=== PATIENT | male | born 1970 | race Caucasian/White ===

== ENCOUNTER 2018-08-31 03:29 | Emergency (ER) | payer MEDICAID ==
[~2018-08-31] VITALS: Ht 167.6 cm; Wt 68.2 kg
[~2018-08-31 03:29] MED LIST: NO HOME MEDS
[2018-08-31] MEDS ORDERED: aspirin 81mg tab.chew PO ONE (03:55)
[2018-08-31 04:34] LABS: BASOPHILS # (AUTO) 0.1 X10'3 (0-0.2); BASOPHILS % (AUTO) 0.8 % (0-1); EOSINOPHILS # (AUTO) 0.2 X10'3 (0-0.9); EOSINOPHILS % (AUTO) 2.3 % (0-6); HEMOGLOBIN 14.1 g/dl (14.0-17.9); LYMPHOCYTES # (AUTO) 1.8 X10'3 (1.1-4.8); LYMPHOCYTES % (AUTO) 27.2 % (21-51); MEAN CORPUSCULAR HEMOGLOBIN 30.1 PG (27.0-31.0); MEAN CORPUSCULAR HGB CONC 33.5 % (33.0-36.5); MEAN CORPUSCULAR VOLUME 89.8 FL (78-98); MEAN PLATELET VOLUME 6.8 FL (7.4-10.4); MONOCYTES # (AUTO) 0.5 X10'3 (0-0.9); MONOCYTES % (AUTO) 6.8 % (2-12); NEUTROPHILS # (AUTO) 4.3 X10'3 (1.8-7.7); NEUTROPHILS % (AUTO) 62.9 % (42-75); PLATELET COUNT 353 X10'3 (140-440); RED BLOOD COUNT 4.67 X10'6 (4.70-6.10); RED CELL DISTRIBUTION WIDTH 12.7 % (11.5-14.5); WHITE BLOOD COUNT 6.8 X10'3 (4.5-11.0)
[2018-08-31 04:49] LABS: ALANINE AMINOTRANSFERASE 34 U/L (12-78); ALBUMIN 3.7 G/DL (3.4-5.0); ALBUMIN/GLOBULIN RATIO 1.1 (1.1-1.5); ALKALINE PHOSPHATASE 90 IU/L (46-116); ANION GAP 11 (8-16); ASPARTATE AMINO TRANSFERASE 22 U/L (10-37); BILIRUBIN,TOTAL 0.4 MG/DL (0.1-1.0); BLOOD UREA NITROGEN 18 MG/DL (7-18); CALCIUM 8.4 MG/DL (8.5-10.1); CHLORIDE 102 MMOL/L (99-107); CREATININE 1.06 MG/DL (0.60-1.10); GLUCOSE 112 MG/DL (70-104); POTASSIUM 3.6 MMOL/L (3.5-5.1); SODIUM 140 MMOL/L (135-145); TOTAL CARBON DIOXIDE 27.5 MMOL/L (24-32); TOTAL PROTEIN 7.1 G/DL (6.4-8.2); eGFR 74 ML/MIN
[2018-08-31 05:06] VITALS: BP 153/91
== END 2018-08-31 05:22 | disposition home or self-care (01) ==
LOC: ER 03:30
DX: R07.9 Chest pain, unspecified (principal); F15.10 Other stimulant abuse, uncomplicated; G89.29 Other chronic pain; Z85.038 Personal history of other malignant neoplasm of large intestine; Z90.89 Acquired absence of other organs; Z88.8 Allergy status to other drugs, medicaments and biological substances; Z56.0 Unemployment, unspecified
CPT/HCPCS: 36415; 70450; 71045; 80053; 84484; 85025; 93005; 99285

== ENCOUNTER 2019-06-20 20:17 | Emergency (ER) | payer MEDICAID ==
[~2019-06-20] VITALS: Ht 170.2 cm; Wt 68.2 kg
[2019-06-20 20:30] VITALS: BP 123/89
[2019-06-20] MEDS ORDERED: azithromycin 250mg tablet PO ONE (20:55)
[2019-06-20] MEDS ORDERED: CefTRIAXone 1000mg IM Kit (w/lidocaine diluent) IM ONE (20:55)
[2019-06-20] MEDS ORDERED: SULF1TAB49 PO (21:01)
[2019-06-20] MEDS ORDERED: CEPH500C5 PO (21:01)
== END 2019-06-20 21:31 | disposition home or self-care (01) ==
LOC: ER 20:17
DX: T23.171A Burn of first degree of right wrist, initial encounter (principal); L03.113 Cellulitis of right upper limb; T31.0 Burns involving less than 10% of body surface; G89.29 Other chronic pain; F15.90 Other stimulant use, unspecified, uncomplicated; F12.90 Cannabis use, unspecified, uncomplicated; Z56.0 Unemployment, unspecified; Z88.8 Allergy status to other drugs, medicaments and biological substances; Z86.14 Personal history of Methicillin resistant Staphylococcus aureus infection; Z85.038 Personal history of other malignant neoplasm of large intestine; Z98.890 Other specified postprocedural states; Z90.49 Acquired absence of other specified parts of digestive tract; X08.8XXA Exposure to other specified smoke, fire and flames, initial encounter; Y93.89 Activity, other specified; Y92.89 Other specified places as the place of occurrence of the external cause; Y99.8 Other external cause status
CPT/HCPCS: 96372; 99283; J0696

== ENCOUNTER 2023-12-09 19:49 | Inpatient (IN) | payer MEDICAID ==
[~2023-12-09] VITALS: Ht 167.6 cm; Wt 72.7 kg
[~2023-12-09 19:49] MED LIST changes: -NO HOME MEDS; +THIA100T70 PO
[2023-12-09] MEDS ORDERED: CefTRIAXone 2gm/D5W 50ml BAG 50 ML IV ONE (23:20)
[2023-12-09 23:50] LABS: BASOPHILS # (AUTO) 0.1 X10'3 (0-0.2); BASOPHILS % (AUTO) 0.6 % (0-1); EOSINOPHILS % (AUTO) 0.4 % (0-6); HEMATOCRIT 37.9 % (42.0-52.0); HEMOGLOBIN 12.9 g/dl (14.0-17.9); LYMPHOCYTES # (AUTO) 1.4 X10'3 (1.1-4.8); LYMPHOCYTES % (AUTO) 11.2 % (21-51); MEAN CORPUSCULAR HGB CONC 34.1 g/dL (33.0-36.5); MEAN PLATELET VOLUME 6.5 FL (7.4-10.4); MONOCYTES # (AUTO) 0.7 X10'3 (0-0.9); NEUTROPHILS # (AUTO) 10.2 X10'3 (1.8-7.7); NEUTROPHILS % (AUTO) 81.8 % (42-75); PLATELET COUNT 354 X10'3 (140-440); RED BLOOD COUNT 4.31 X10'6 (4.70-6.10); RED CELL DISTRIBUTION WIDTH 12.8 % (11.5-14.5); WHITE BLOOD COUNT 12.5 X10'3 (4.5-11.0)
[2023-12-09] MEDS ORDERED: vancomycin/NS 1 GM ADD-VANTAGE 250 ML IV ONE (23:50)
[2023-12-10 00:06] LABS: ANION GAP 7 (8-16); BLOOD UREA NITROGEN 11 MG/DL (7-18); BUN/CREATININE RATIO 15.7 (10.0-20.0); CALCIUM 7.9 MG/DL (8.5-10.1); CHLORIDE 101 MMOL/L (99-107); GLUCOSE 117 MG/DL (70-104); POTASSIUM 3.8 MMOL/L (3.5-5.1); SODIUM 138 MMOL/L (135-145); TOTAL CARBON DIOXIDE 29.7 MMOL/L (24-32); eCRCL 109 ML/MIN; eGFR > 90 ML/MIN
[2023-12-10] MEDS ORDERED: ondansetron/PF 4mg/2ml inj IV ONE (00:10)
[2023-12-10] MEDS ORDERED: normal saline 1000ML IV soln IVB ONE (00:10)
[2023-12-10] MEDS ORDERED: morphine 4 MG/ML inj SYRINge IV ONE (00:10)
[2023-12-10] MEDS ORDERED: iohexol 300mg/ml 100ml inj. ONE (00:28)
[2023-12-10] MEDS ORDERED: acetaminophen 325mg tablet PO PRN (01:40)
[2023-12-10] MEDS ORDERED: magnesium hydroxide 30ml (MOM) UD suspension PO PRN (01:40)
[2023-12-10] MEDS ORDERED: ondansetron/PF 4mg/2ml inj IV PRN (01:40)
[2023-12-10] MEDS ORDERED: mag hydrox/Alum hydrox/simeth 30ml oral suspension PO PRN (01:40)
[2023-12-10] MEDS ORDERED: potassium Cl 20 mEq SR tablet PO PRN ×2 (01:40)
[2023-12-10] MEDS ORDERED: potassium Cl 40MEQ/1/2NS 520ml 520 ML IV PRN (01:40)
[2023-12-10] MEDS ORDERED: magnesium 4gm in 100ml NS 100 ML IV PRN (01:40)
[2023-12-10] MEDS ORDERED: HYDROcodone/acetaminophen 5mg/325mg tablet PO PRN (01:40)
[2023-12-10] MEDS ORDERED: morphine 2 MG/ML inj. syringe IV PRN ×2 (01:40)
[2023-12-10] MEDS ORDERED: magnesium 2GM in 50ml NS 50 ML IV PRN (01:40)
[2023-12-10] MEDS ORDERED: magnesium Cl slow-release 64mg tablet PO PRN (01:40)
[2023-12-10 02:10] LABS: PHOSPHORUS 2.2 MG/DL (2.3-4.5)
[2023-12-10 02:14] LABS: HEMOGLOBIN A1C 5.6 % (4.5-6.2)
[2023-12-10] MEDS: normal saline 1000ml 1,000 ML IV SCH ×3 (02:17→22:04)
[2023-12-10] MEDS: K and/or MAG REPLACEMENT MC SCH ×2 (06:59→20:00)
[2023-12-10] MEDS: enoxaparin 40mg/0.4ml syringe SUBCUT SCH (08:01)
[2023-12-10] MEDS: nicotine 7mg patch - 24hr TD SCH (08:01)
[2023-12-10] MEDS: vancomycin/NS 1 GM ADD-VANTAGE 250 ML IV SCH ×2 (08:01→16:20)
[2023-12-10 09:16] LABS: BASOPHILS # (AUTO) 0.1 X10'3 (0-0.2); BASOPHILS % (AUTO) 0.5 % (0-1); EOSINOPHILS # (AUTO) 0.1 X10'3 (0-0.9); EOSINOPHILS % (AUTO) 0.7 % (0-6); HEMATOCRIT 36.8 % (42.0-52.0); HEMOGLOBIN 12.7 g/dl (14.0-17.9); LYMPHOCYTES # (AUTO) 1.2 X10'3 (1.1-4.8); LYMPHOCYTES % (AUTO) 10.1 % (21-51); MEAN CORPUSCULAR HEMOGLOBIN 30.2 PG (27.0-31.0); MEAN CORPUSCULAR HGB CONC 34.6 g/dL (33.0-36.5); MEAN CORPUSCULAR VOLUME 87.4 FL (78-98); MEAN PLATELET VOLUME 6.4 FL (7.4-10.4); MONOCYTES # (AUTO) 0.8 X10'3 (0-0.9); MONOCYTES % (AUTO) 7.3 % (2-12); NEUTROPHILS # (AUTO) 9.3 X10'3 (1.8-7.7); NEUTROPHILS % (AUTO) 81.4 % (42-75); PLATELET COUNT 344 X10'3 (140-440); RED BLOOD COUNT 4.21 X10'6 (4.70-6.10); RED CELL DISTRIBUTION WIDTH 12.9 % (11.5-14.5); WHITE BLOOD COUNT 11.4 X10'3 (4.5-11.0)
[2023-12-10 10:17] LABS: BILIRUBIN,URINE NEGATIVE (Neg); CLARITY,URINE CLEAR (Clear); COLOR,URINE YELLOW (Yellow); GLUCOSE, URINE NEGATIVE (Neg); KETONES,URINE NEGATIVE (Neg); LEUKOCYTE ESTERASE ,URINE NEGATIVE (Neg); NITRITES, URINE NEGATIVE (Neg); OCCULT BLOOD,URINE NEGATIVE (Neg); PH,URINE 6.5 (4.8-8.0); PROTEIN,URINE NEGATIVE (Neg); UROBILINOGEN,URINE 0.2 E.U/dL (0.2-1.0)
[2023-12-10 10:19] LABS: UA COLLECTION TYPE CLN CATCH MIDSTREAM
[2023-12-10 10:32] LABS: ALANINE AMINOTRANSFERASE 156 U/L (12-78); ALBUMIN 2.4 G/DL (3.4-5.0); ALBUMIN/GLOBULIN RATIO 0.7 (1.1-1.5); ALKALINE PHOSPHATASE 197 IU/L (46-116); ANION GAP 7 (8-16); ASPARTATE AMINO TRANSFERASE 169 U/L (10-37); BILIRUBIN,TOTAL 1.4 MG/DL (0.1-1.0); CHLORIDE 103 MMOL/L (99-107); CREATININE 0.71 MG/DL (0.60-1.10); GLUCOSE 117 MG/DL (70-104); SODIUM 136 MMOL/L (135-145); TOTAL CARBON DIOXIDE 25.9 MMOL/L (24-32); eCRCL 107 ML/MIN; eGFR > 90 ML/MIN
[2023-12-10 10:51] LABS: BLOOD UREA NITROGEN 6 MG/DL (7-18); BUN/CREATININE RATIO 8.5 (10.0-20.0)
[2023-12-10] MEDS ORDERED: NO HOME MEDS (10:55)
[2023-12-10 11:47] LABS: URINE AMPHETAMINE SCREEN POSITIVE (Neg)
[2023-12-10 11:48] LABS: URINE BARBITUATE SCREEN NEGATIVE (Neg); URINE BENZODIAZEPINES SCREEN NEGATIVE (Neg); URINE CANNABINOID SCREEN NEGATIVE (Neg); URINE COCAINE SCREEN NEGATIVE (Neg); URINE METHADONE SCREEN NEGATIVE (Neg); URINE OPIATE SCREEN POSITIVE (Neg); URINE PHENCYCLIDINE SCREEN NEGATIVE (Neg)
[2023-12-10] MEDS: HYDROcodone/acetaminophen 10/325mg tab PO PRN (13:46)
[2023-12-10 14:00] VITALS: BP 138/80; PULSE 101; RESP 14; TEMP 101.1; O2SAT 98
[2023-12-10 18:00] VITALS: BP 134/81; PULSE 94; RESP 16; TEMP 98.8; O2SAT 99
[2023-12-10 20:00] VITALS: RESP 16; O2SAT 99
[2023-12-10 22:00] VITALS: BP 105/62; PULSE 99; RESP 16; TEMP 97.9; O2SAT 99
[2023-12-10] MEDS: CefTRIAXone/D5W-Rocephin 1gm 50 ML IV SCH (22:03)
[2023-12-10] MEDS ORDERED: VANCOMYCIN LEVEL IV ONE (23:30)
[2023-12-11] MEDS: vancomycin/NS 1 GM ADD-VANTAGE 250 ML IV SCH ×2 (00:36→08:35)
[2023-12-11] MEDS: HYDROcodone/acetaminophen 10/325mg tab PO PRN ×4 (04:01→22:04)
[2023-12-11 06:37] LABS: BASOPHILS # (AUTO) 0.1 X10'3 (0-0.2); BASOPHILS % (AUTO) 0.5 % (0-1); EOSINOPHILS # (AUTO) 0.2 X10'3 (0-0.9); EOSINOPHILS % (AUTO) 1.3 % (0-6); HEMATOCRIT 36.5 % (42.0-52.0); HEMOGLOBIN 12.5 g/dl (14.0-17.9); LYMPHOCYTES # (AUTO) 1.2 X10'3 (1.1-4.8); LYMPHOCYTES % (AUTO) 8.8 % (21-51); MEAN CORPUSCULAR HEMOGLOBIN 30.2 PG (27.0-31.0); MEAN CORPUSCULAR HGB CONC 34.3 g/dL (33.0-36.5); MEAN CORPUSCULAR VOLUME 88.2 FL (78-98); MEAN PLATELET VOLUME 7.1 FL (7.4-10.4); NEUTROPHILS # (AUTO) 10.7 X10'3 (1.8-7.7); NEUTROPHILS % (AUTO) 81.4 % (42-75); PLATELET COUNT 377 X10'3 (140-440); RED BLOOD COUNT 4.14 X10'6 (4.70-6.10); WHITE BLOOD COUNT 13.1 X10'3 (4.5-11.0)
[2023-12-11 06:59] LABS: ALANINE AMINOTRANSFERASE 96 U/L (12-78); ALBUMIN 2.2 G/DL (3.4-5.0); ALBUMIN/GLOBULIN RATIO 0.6 (1.1-1.5); ALKALINE PHOSPHATASE 204 IU/L (46-116); ANION GAP 5 (8-16); ASPARTATE AMINO TRANSFERASE 46 U/L (10-37); BILIRUBIN,TOTAL 0.6 MG/DL (0.1-1.0); BLOOD UREA NITROGEN 9 MG/DL (7-18); BUN/CREATININE RATIO 13.8 (10.0-20.0); CALCIUM 8.6 MG/DL (8.5-10.1); CHLORIDE 104 MMOL/L (99-107); CREATININE 0.65 MG/DL (0.60-1.10); GLUCOSE 103 MG/DL (70-104); POTASSIUM 4.2 MMOL/L (3.5-5.1); SODIUM 139 MMOL/L (135-145); TOTAL CARBON DIOXIDE 30.4 MMOL/L (24-32); TOTAL PROTEIN 6.2 G/DL (6.4-8.2); eCRCL 117 ML/MIN; eGFR > 90 ML/MIN
[2023-12-11 07:00] VITALS: BP 124/79; PULSE 91; RESP 16; TEMP 97.8; O2SAT 100
[2023-12-11] MEDS: nicotine 7mg patch - 24hr TD SCH (07:21)
[2023-12-11] MEDS: enoxaparin 40mg/0.4ml syringe SUBCUT SCH (07:22)
[2023-12-11] MEDS: K and/or MAG REPLACEMENT MC SCH ×2 (08:00→20:00)
[2023-12-11] MEDS: normal saline 1000ml 1,000 ML IV SCH ×3 (08:35→23:19)
[2023-12-11 10:00] VITALS: BP 109/66; PULSE 94; RESP 16; TEMP 98.4; O2SAT 98
[2023-12-11 11:00] VITALS: RESP 18; O2SAT 97
[2023-12-11] MEDS: VANCOmycin 1250MG/NS 250ml Bag 250 ML IV SCH (16:15)
[2023-12-11 18:00] VITALS: BP 120/75; PULSE 93; RESP 16; TEMP 99.8; O2SAT 99
[2023-12-11 20:00] VITALS: RESP 18; O2SAT 96
[2023-12-11 22:00] VITALS: BP 118/74; PULSE 87; RESP 20; TEMP 98.4; O2SAT 98
[2023-12-11] MEDS: CefTRIAXone/D5W-Rocephin 1gm 50 ML IV SCH (23:18)
[2023-12-12] MEDS: VANCOmycin 1250MG/NS 250ml Bag 250 ML IV SCH ×3 (01:14→15:30)
[2023-12-12 04:39] LABS: BASOPHILS # (AUTO) 0.1 X10'3 (0-0.2); BASOPHILS % (AUTO) 0.7 % (0-1); EOSINOPHILS # (AUTO) 0.3 X10'3 (0-0.9); EOSINOPHILS % (AUTO) 2.7 % (0-6); HEMATOCRIT 37.3 % (42.0-52.0); HEMOGLOBIN 12.5 g/dl (14.0-17.9); LYMPHOCYTES # (AUTO) 1.5 X10'3 (1.1-4.8); LYMPHOCYTES % (AUTO) 12.8 % (21-51); MEAN CORPUSCULAR HEMOGLOBIN 29.8 PG (27.0-31.0); MEAN CORPUSCULAR HGB CONC 33.4 g/dL (33.0-36.5); MEAN CORPUSCULAR VOLUME 89.1 FL (78-98); MEAN PLATELET VOLUME 6.6 FL (7.4-10.4); MONOCYTES # (AUTO) 0.9 X10'3 (0-0.9); MONOCYTES % (AUTO) 8.1 % (2-12); NEUTROPHILS # (AUTO) 8.8 X10'3 (1.8-7.7); NEUTROPHILS % (AUTO) 75.7 % (42-75); PLATELET COUNT 400 X10'3 (140-440); RED BLOOD COUNT 4.19 X10'6 (4.70-6.10); RED CELL DISTRIBUTION WIDTH 12.9 % (11.5-14.5); WHITE BLOOD COUNT 11.6 X10'3 (4.5-11.0)
[2023-12-12 04:41] LABS: ALANINE AMINOTRANSFERASE 63 U/L (12-78); ALBUMIN/GLOBULIN RATIO 0.5 (1.1-1.5); ALKALINE PHOSPHATASE 203 IU/L (46-116); ANION GAP 6 (8-16); ASPARTATE AMINO TRANSFERASE 18 U/L (10-37); BILIRUBIN,TOTAL 0.4 MG/DL (0.1-1.0); BLOOD UREA NITROGEN 15 MG/DL (7-18); CALCIUM 8.8 MG/DL (8.5-10.1); CHLORIDE 102 MMOL/L (99-107); CREATININE 0.88 MG/DL (0.60-1.10); GLUCOSE 102 MG/DL (70-104); POTASSIUM 4.5 MMOL/L (3.5-5.1); SODIUM 137 MMOL/L (135-145); TOTAL CARBON DIOXIDE 29.5 MMOL/L (24-32); TOTAL PROTEIN 6.2 G/DL (6.4-8.2); eCRCL 87 ML/MIN; eGFR 90 ML/MIN
[2023-12-12] MEDS: HYDROcodone/acetaminophen 10/325mg tab PO PRN ×4 (06:03→23:01)
[2023-12-12 07:00] VITALS: BP 114/72; PULSE 85; RESP 14; TEMP 98.7; O2SAT 98
[2023-12-12] MEDS: K and/or MAG REPLACEMENT MC SCH ×2 (08:00→20:00)
[2023-12-12] MEDS: enoxaparin 40mg/0.4ml syringe SUBCUT SCH (08:10)
[2023-12-12] MEDS: nicotine 7mg patch - 24hr TD SCH (08:10)
[2023-12-12 10:00] VITALS: BP 106/66; PULSE 77; RESP 14; TEMP 97.9; O2SAT 100
[2023-12-12 10:20] VITALS: RESP 18
[2023-12-12] MEDS: normal saline 1000ml 1,000 ML IV SCH ×2 (14:02→23:40)
[2023-12-12] MEDS ORDERED: VANCOMYCIN LEVEL IV ONE ×2 (15:30→23:30)
[2023-12-12 18:00] VITALS: BP 110/66; PULSE 71; RESP 15; TEMP 98.7; O2SAT 98
[2023-12-12 20:00] VITALS: RESP 15; O2SAT 98
[2023-12-12 22:00] VITALS: BP 112/64; PULSE 97; RESP 20; TEMP 98.9; O2SAT 99
[2023-12-12] MEDS: CefTRIAXone/D5W-Rocephin 1gm 50 ML IV SCH (22:56)
[2023-12-13] MEDS: VANCOmycin 1250MG/NS 250ml Bag 250 ML IV SCH ×2 (01:30→07:27)
[2023-12-13 01:45] LABS: BASOPHILS # (AUTO) 0.1 X10'3 (0-0.2); BASOPHILS % (AUTO) 1.1 % (0-1); EOSINOPHILS # (AUTO) 0.3 X10'3 (0-0.9); EOSINOPHILS % (AUTO) 3.4 % (0-6); HEMATOCRIT 37.2 % (42.0-52.0); HEMOGLOBIN 12.9 g/dl (14.0-17.9); LYMPHOCYTES # (AUTO) 1.2 X10'3 (1.1-4.8); LYMPHOCYTES % (AUTO) 16.3 % (21-51); MEAN CORPUSCULAR HEMOGLOBIN 30.6 PG (27.0-31.0); MEAN CORPUSCULAR HGB CONC 34.6 g/dL (33.0-36.5); MEAN CORPUSCULAR VOLUME 88.6 FL (78-98); MONOCYTES # (AUTO) 0.6 X10'3 (0-0.9); NEUTROPHILS # (AUTO) 5.3 X10'3 (1.8-7.7); NEUTROPHILS % (AUTO) 71.2 % (42-75); PLATELET COUNT 425 X10'3 (140-440); WHITE BLOOD COUNT 7.4 X10'3 (4.5-11.0)
[2023-12-13 02:10] LABS: ALANINE AMINOTRANSFERASE 83 U/L (12-78); ALBUMIN/GLOBULIN RATIO 0.5 (1.1-1.5); ALKALINE PHOSPHATASE 355 IU/L (46-116); ANION GAP 3 (8-16); ASPARTATE AMINO TRANSFERASE 29 U/L (10-37); BILIRUBIN,TOTAL 0.3 MG/DL (0.1-1.0); BLOOD UREA NITROGEN 15 MG/DL (7-18); BUN/CREATININE RATIO 18.1 (10.0-20.0); CALCIUM 8.6 MG/DL (8.5-10.1); CHLORIDE 102 MMOL/L (99-107); CREATININE 0.83 MG/DL (0.60-1.10); GLUCOSE 100 MG/DL (70-104); SODIUM 137 MMOL/L (135-145); TOTAL CARBON DIOXIDE 32.3 MMOL/L (24-32); TOTAL PROTEIN 6.3 G/DL (6.4-8.2); VANCOMYCIN,TROUGH 17.9 ug/mL (10.0-20.0); eCRCL 92 ML/MIN; eGFR > 90 ML/MIN
[2023-12-13 07:00] VITALS: BP 111/66; PULSE 84; RESP 18; TEMP 98.7; O2SAT 97
[2023-12-13] MEDS: nicotine 7mg patch - 24hr TD SCH (07:26)
[2023-12-13] MEDS: HYDROcodone/acetaminophen 10/325mg tab PO PRN ×2 (07:26→12:59)
[2023-12-13] MEDS: enoxaparin 40mg/0.4ml syringe SUBCUT SCH (07:27)
[2023-12-13] MEDS: K and/or MAG REPLACEMENT MC SCH (07:27)
[2023-12-13] MEDS: normal saline 1000ml 1,000 ML IV SCH (09:40)
[2023-12-13 10:00] VITALS: BP 108/59; PULSE 91; RESP 16; TEMP 97.8; O2SAT 95
[2023-12-13 10:11] VITALS: RESP 17; O2SAT 98
[2023-12-13] MEDS ORDERED: NICO-630 TD (12:54)
[2023-12-13] MEDS ORDERED: DOXY-224 PO (12:54)
[2023-12-13] MEDS ORDERED: LEVO750T68 PO (12:54)
[2023-12-13] MEDS ORDERED: HYDR-3972 PO (12:54)
[2023-12-13 12:59] VITALS: RESP 16
== END 2023-12-13 14:05 | disposition home or self-care (01) | DRG 720 ==
LOC: ER 19:49 → ED HOLD 12-10 01:46 → ORTHO 4S 12-10 13:55
PROVIDERS: ADMIT Internal Medicine; ATTEND Family Medicine
DX: A41.9 Sepsis, unspecified organism (principal); M00.9 Pyogenic arthritis, unspecified; L03.116 Cellulitis of left lower limb; M70.42 Prepatellar bursitis, left knee; R74.01 Elevation of levels of liver transaminase levels; F19.10 Other psychoactive substance abuse, uncomplicated; Z85.038 Personal history of other malignant neoplasm of large intestine; Z72.0 Tobacco use; Z79.899 Other long term (current) drug therapy
CPT/HCPCS: 36415; 73564; 73701; 80048; 80053; 80202; 80305; 81003; 83036; 83605; 83735; 84100; 84145; 85025; 87040; 87070; 87075; 87077; 87081; 87186; 93005; 93971; 97116; 97161; 97530; 99285; A6196; A6222; A6446; A6449; G0378; J0696; J1650; J2270; J2405; J3370; J3490; J7030; Q9967